=== PATIENT | male | born 1985 | race Caucasian/White ===

== ENCOUNTER 2022-04-27 06:26 | Emergency (ER) | payer BC ==
[2022-04-27] MEDS ORDERED: Acetaminophen/oxyCODONE 325-5 MG Tab PO ONE (07:34)
[2022-04-27] MEDS ORDERED: Metoclopramide 10 MG Tab PO ONE (07:35)
[2022-04-27] MEDS ORDERED: diphenhydrAMINE 50 MG Cap PO ONE (07:35)
[2022-04-27] MEDS ORDERED: Ketorolac 10 MG Tab PO ONE (07:36)
== END 2022-04-27 07:52 | disposition home or self-care (01) ==
LOC: JD.ED 06:26 → MERGE 06:26 → JD.ED 07:52
DX: R51.9 Headache, unspecified (principal)
CPT/HCPCS: 99283; A9270; Q0163

== ENCOUNTER 2022-08-02 21:29 | Emergency (ER) | payer BC ==
[2022-08-02] MEDS ORDERED: Amoxicillin/Clavulanate K 875-125 MG Tab PO ONE (22:37)
[2022-08-02] MEDS ORDERED: Acetaminophen/HYDROcodone 325-5 MG Tab PO ONE (22:37)
== END 2022-08-02 23:00 | disposition home or self-care (01) ==
LOC: JD.ED 21:29
DX: K08.89 Other specified disorders of teeth and supporting structures (principal)
CPT/HCPCS: 99282; A9270

== ENCOUNTER 2023-04-20 11:25 | Emergency (ER) | payer BC ==
[2023-04-20 12:13] LABS: BASOPHILS ABSOLUTE AUTO 0.1 K/mm3 (0.0-0.2); BASOPHILS PERCENT AUTO 1.5 % (0.0-1.0); EOSINOPHILS PERCENT AUTO 0.5 % (0.0-6.0); IMMATURE GRAN ABSOLUTE AUTO 0.02 K/mm3 (0.00-0.05); IMMATURE GRAN PERCENT AUTO 0.3 % (0.0-0.4); LYMPHOCYTES ABSOLUTE AUTO 1.6 K/mm3 (1.0-4.8); LYMPHOCYTES PERCENT AUTO 23.7 % (24.0-44.0); MEAN CORPUSCULAR HEMOGLOBIN 29.9 pg (28.0-32.0); MEAN CORPUSCULAR HGB CONC 34.1 g/dl (32.0-36.0); MEAN CORPUSCULAR VOLUME 87.8 fl (83.0-99.0); MEAN PLATELET VOLUME 10.5 fl (9.4-12.4); MONOCYTES ABSOLUTE AUTO 0.4 K/mm3 (0.0-0.8); MONOCYTES PERCENT AUTO 6.3 % (0.0-8.0); NEUTROPHILS ABSOLUTE AUTO 4.4 K/mm3 (1.8-7.7); NEUTROPHILS PERCENT AUTO 67.7 % (41.0-71.0); PLATELET COUNT,PLT 239 K/mm3 (150-400); RED BLOOD CELL COUNT 5.01 M/mm3 (4.52-5.90); WHITE BLOOD CELL COUNT,WBC 6.53 K/mm3 (3.9-11.3)
[2023-04-20 12:31] LABS: A/G RATIO 1.3 (1-2); ALBUMIN 4.3 g/dl (3.4-5.0); BILIRUBIN TOTAL 0.4 mg/dL (0.2-1.0); BUN/CREATININE RATIO 18.2 (14-18); CALCIUM 9.4 mg/dL (8.5-10.1); CREATININE 1.1 mg/dL (0.7-1.3); EST CRCL DRUG DOSING (CG) 91.05 mL/min; MAGNESIUM 1.9 mg/dL (1.8-2.4); PROTEIN TOTAL,TP 7.6 g/dl (6.4-8.2)
== END 2023-04-20 13:18 | disposition home or self-care (01) ==
LOC: JD.ED 11:25
DX: R20.0 Anesthesia of skin (principal); Z79.899 Other long term (current) drug therapy
CPT/HCPCS: 36415; 70450; 70450-26; 80053; 83735; 85025; 99284

== ENCOUNTER 2023-06-05 09:45 | Emergency (ER) | payer BC ==
[2023-06-05] MEDS ORDERED: Sodium Chloride 0.9% 10 ML Syringe FLUSH PRN (10:14)
[2023-06-05 10:43] LABS: BASOPHILS ABSOLUTE AUTO 0.1 K/mm3 (0.0-0.2); BASOPHILS PERCENT AUTO 1.4 % (0.0-1.0); EOSINOPHILS PERCENT AUTO 0.3 % (0.0-6.0); HEMATOCRIT 44.1 % (42.0-52.0); HEMOGLOBIN 15.1 gm/dl (14.0-18.0); IMMATURE GRAN ABSOLUTE AUTO 0.02 K/mm3 (0.00-0.05); IMMATURE GRAN PERCENT AUTO 0.3 % (0.0-0.4); LYMPHOCYTES ABSOLUTE AUTO 2.1 K/mm3 (1.0-4.8); LYMPHOCYTES PERCENT AUTO 29.6 % (24.0-44.0); MEAN CORPUSCULAR HGB CONC 34.2 g/dl (32.0-36.0); MEAN PLATELET VOLUME 10.4 fl (9.4-12.4); MONOCYTES ABSOLUTE AUTO 0.5 K/mm3 (0.0-0.8); NEUTROPHILS ABSOLUTE AUTO 4.3 K/mm3 (1.8-7.7); NEUTROPHILS PERCENT AUTO 61.4 % (41.0-71.0); PLATELET COUNT,PLT 281 K/mm3 (150-400); WHITE BLOOD CELL COUNT,WBC 7.02 K/mm3 (3.9-11.3)
[2023-06-05 10:49] LABS: MEAN CORPUSCULAR VOLUME 84.8 fl (83.0-99.0)
[2023-06-05 11:29] LABS: A/G RATIO 1.4 (1-2); ALBUMIN 4.7 g/dl (3.4-5.0); ANION GAP 16.8 (5-15); BILIRUBIN TOTAL 0.7 mg/dL (0.2-1.0); BUN/CREATININE RATIO 10.9 (14-18); CALCIUM 9.8 mg/dL (8.5-10.1); CREATININE 1.1 mg/dL (0.7-1.3); EST CRCL DRUG DOSING (CG) 88.09 mL/min; MAGNESIUM 2.4 mg/dL (1.8-2.4); POTASSIUM,K 3.8 mEq/L (3.5-5.1)
[2023-06-05] MEDS ORDERED: Alum Hydrox/Mag Hydrox/Simeth 30 ML, Lidocaine 2% 15 ML PO ONE ×2 (11:56)
== END 2023-06-05 13:53 | disposition home or self-care (01) ==
LOC: JD.ED 09:45
DX: R07.89 Other chest pain (principal); K21.00 Gastro-esophageal reflux disease with esophagitis, without bleeding
CPT/HCPCS: 36415; 71046; 80053; 83735; 84484; 85025; 93005; 99285; A9270; J3490; 93010; 99284

== ENCOUNTER 2023-06-12 08:12 | Day surgery (SDC) | payer BC ==
[~2023-06-12 08:12] MED LIST: Lactated Ringers 1,000 ML IV SCH; Sodium Chloride 0.9% 10 ML Syringe FLUSH PRN; Sodium Chloride 0.9% 10 ML Syringe FLUSH SCH
[2023-06-12] MEDS ORDERED: Propofol 200 MG/20 ML SDV ONE ×4 (08:45→10:45)
[2023-06-12] MEDS ORDERED: Ondansetron 4 MG/2 ML SDV ONE (08:45)
[2023-06-12] MEDS ORDERED: Lidocaine 1% 2 ML ONE (08:47)
[2023-06-12] MEDS ORDERED: ePHEDrine 50 MG/ML SDV ONE (10:51)
== END 2023-06-12 12:30 | disposition home or self-care (01) ==
LOC: JD.SDS 08:12
PROVIDERS: ATTEND Surgery
DX: K20.90 Esophagitis, unspecified without bleeding (principal); K31.89 Other diseases of stomach and duodenum; I78.1 Nevus, non-neoplastic; K29.80 Duodenitis without bleeding; K29.70 Gastritis, unspecified, without bleeding; K44.9 Diaphragmatic hernia without obstruction or gangrene; K22.89 Other specified disease of esophagus; K52.9 Noninfective gastroenteritis and colitis, unspecified; R63.4 Abnormal weight loss; Z68.22 Body mass index [BMI] 22.0-22.9, adult; Z79.899 Other long term (current) drug therapy
CPT/HCPCS: 43239; 45380; J2405; J2704; J7120; 00813; J3490